=== PATIENT | female | born 1945 | race Caucasian/White ===

== ENCOUNTER → 2020-06-03 10:18 | Outpatient (REF) | payer MEDICARE, SELFPAY ==
--- NOTE | 2020-06-03 10:30 | CA_ITS ---
Transthoracic Echocardiogram Patient (Last, First, Middle): Sultana Hartmann M Gender: Female Date of : 1945 Age: 74 Procedure Date: 06/03/2020 Procedure Type: Transthoracic Echocardiogram Location: OP Height: 160.02 cm Weight: 115.67 kg BSA: 2.14 m2 Heart Rate: bpm BP: 140 / 88 mmHg Programmer Operator Numerical Control: Referring MD: Yang Barth MD Symptoms: [id number] dilated ascending aorta Study Quality: Good ECG Rhythm: Sinus Conclusions: - The left ventricular systolic function is normal. The visually estimated ejection fraction is between 60-65%. - There is mild tricuspid valve regurgitation. - There is mild dilatation of the ascending aorta measuring 4.00 cm. Findings Left Ventricle Normal left ventricular cavity size. The left ventricular systolic function is normal. The visually estimated ejection fraction is between 60-65%. There is no evidence of regional wall motion abnormalities. E/E prime ratio is between 8 and 15 consistent with indeterminate filling pressures. Evidence suggests grade I (mild) diastolic dysfunction. There is mild septal asymmetric hypertrophy. Right Ventricle Normal right ventricular cavity size and systolic function. Atria The left atrium is normal in size. The right atrium is mildly dilated. Aortic Valve There is a normal trileaflet aortic valve. There is no aortic valve stenosis. There is no aortic valve regurgitation. Mitral Valve The mitral valve appears normal. There is trace mitral valve regurgitation. There is no mitral valve stenosis. Pulmonic Valve The pulmonic valve was not well visualized. There is mild pulmonic valve regurgitation. Tricuspid Valve Normal tricuspid valve structure. There is mild tricuspid valve regurgitation. The pulmonary artery systolic pressure is normal. Great Vessels The aortic annulus, sinuses of valsalva, and asc aorta are normal in size. There is mild dilatation of the ascending aorta measuring 4.00 cm. Venous The inferior vena cava is normal in size and collapses greater than 50% with inspiration. Pericardium/Pleural There is no evidence of pericardial effusion. Prior Study Comparison No significant change compared to prior study dated: 06/20/2019. Measurements 2D Linear Measurements RVIDd: 3.66 RVIDd Index: 1.71 IVSd: 0.94 0.6-0.9/0.6-1.0 cm LVIDd: 4.29 3.9-5.3/4.2-5.9 cm LVIDd Index: 2.00 2.4-3.2/2.2-3.1 cm/m2 LVIDs: 2.91 2.0-3.6 cm LVPWd: 1.28 0.7-1.1 cm Ao Root: 3.00 2.1-3.5 cm LA Diam: 5.80 2.7-3.8/3.0-4.0 cm LAIDs Index: 2.71 1.5-2.3 cm/m2 LV Mass: 205.35 67-162/88-224 g LV Mass Index: 95.96 43-95/49-115 g/m2 LVOT Diam: 2.10 3.0+(-)1.3 cm 2D Systolic Function EF 4C: 58.50 >55% EF 2C: 78.60 >55% EF BiP: 70.30 >55% Mitral Valve MV Pk E: 0.82 MV PK A: 1.22 MV Decel Time: 301.00 E/A: 0.70 E'Lateral: 7.06 E'Medial: 7.45 E/E' Med: 11.00 E/E' Lat: 11.60 Aortic Valve AoV Pk Cornel: 1.82 AoV Mn Cornel: 1.28 AoV VTI: 0.41 AoV Pk Grad: 13.00 Aov Mn Grad: 8.00 MIGUEL Cont.VTI: 2.47 LVOT LVOT Pk Cornel: 1.16 LVOT Mn Cornel: 0.87 LVOT VTI: 0.29 LVOT Pk Grad: 5.00 LVOT Mn Grad: 3.00 LVOT Diam: 2.10 LVOT Area: 3.46 Diastolic Function MV Pk E: 0.82 MV Pk A: 1.22 E/A: 0.70 E'Medial: 7.45 E/E' Med: 11.00 E' Laterial: 7.06 E/E' Lat: 11.60 Tricuspid Valve TR Pk Cornel: 2.79 TR Pk Grad: 31.00 RA Press: 3.00 RVSP: 34.00 Great Vessels Aorta Ao Root-2D: 3.00 2.0-3.7 cm Ao Asc: 4.00 2.1-3.4 cm Ao Arch: 3.40 Updated in Other Vendor System with Status of Final Foster Damon MD electronically signed on 06/03/2020 4:41:02 PM with status of Final
== END ==
LOC: HO.CARD 10:18
PROVIDERS: Visit Provider Internal Medicine Cardiovascular Disease
DX: I77.810 Thoracic aortic ectasia (principal)
CPT/HCPCS: 93306

== ENCOUNTER 2020-08-14 09:08 | Outpatient (REF) | payer MEDICARE, SELFPAY ==
--- NOTE | 2020-08-14 09:15 | MM_ITS ---
EXAMINATION: BONE DENSITOMETRY CLINICAL INDICATION: Asymptomatic menopausal state. COMPARISON: Baseline BD dated 03/21/2009. TECHNIQUE: Using a [employer] DXA System (software version: 13.1) manufactured by [employer], dual-energy x-ray absorptiometry was performed of the lumbar spine and left hip. The images are of good technical quality. Summary results are attached. FINDINGS: AP SPINE L1-L2 (excluding L3 and L4): The data of L1-L4 has been changed to exclude the L3 and L4 vertebral bodies, because degenerative changes at these levels may cause overestimation of lumbar spine density. Current: BMD 1.111 g/cm2, Z-score 0.2, T-score -0.4, normal, 4.2% increase from baseline (<5% change is not significant). Baseline: BMD 1.066 g/cm2. LEFT FEMUR, NECK: Current: BMD 0.647 g/cm2, Z-score -1.6, T-score -2.8, osteoporosis. Baseline: BMD 0.826 g/cm2. LEFT FEMUR, TOTAL: Current: BMD 0.839 g/cm2, Z-score -0.3, T-score -1.3, osteopenia, 16.8% decrease from baseline (<5% change is not significant). Baseline: BMD 1.008 g/cm2. IDENTIFIED RISK FACTORS: Height loss, menopause. HISTORY OF FRACTURE: None listed. MEDICATIONS: Calcium supplements or multivitamin, vitamin D. MM/XR DEXA axial skeleton IMPRESSION: 1. DIAGNOSIS: Osteoporosis based on the lowest T-score value of -2.8 in the femoral neck applying World Health Organization criteria. 2. 10-YEAR FRACTURE RISK PREDICTION, FRAX: Major osteoporotic fracture (clinical spine, forearm, hip or shoulder) 17.7%. Hip fracture 6.1%. 3. Treatment Recommendations: NOF guidelines recommend consideration for treatment in postmenopausal women and men age 50 and older presenting with the following: -A hip or vertebral (clinical or morphometric) fracture. -T-score less than or equal to -2.5 at the femoral neck or spine after appropriate evaluation to exclude secondary causes. -Low bone mass at the hip or spine and a 10-year fracture probability by FRAX of greater than or equal to 3% for hip fracture or greater than or equal to 20% for major osteoporotic fracture based on the [place] adapted WHO algorithm. 4. Other Recommendations: All treatment decisions require clinical judgment and consideration of individual patient factors, including patient preferences, comorbidities, previous drug use, risk factors not captured in the FRAX model (e.g. frailty, falls, vitamin D deficiency, increased bone turnover, interval significant decline in bone density) and possible under or overestimation of fracture risk by FRAX. Additional medical evaluation for secondary cause of low bone mineral density may be appropriate. FUTURE SCAN RECOMMENDATION: People with diagnosed cases of osteoporosis or at high risk for fracture should have regular bone mineral density tests. For patients eligible for Medicare, routine testing is allowed once every 2 years. The testing frequency can be increased to one year for patients who have rapidly progressing disease, those who are receiving or discontinuing medical therapy to restore bone mass, or have additional risk factors.
--- NOTE | 2020-08-14 09:28 | MM_ITS ---
EXAMINATION: MM SCREENING DIGITAL BREAST TOMOSYNTHESIS, RIGHT CLINICAL INFORMATION: Remote history left mastectomy 1983. Due for yearly exam. COMPARISON: Mammography: 11/22/2017, 12/05/2014, 03/26/2014 TECHNIQUE: Digital breast tomosynthesis is performed in both the craniocaudal and mediolateral oblique views along with computer-aided detection (CAD). Synthesized 2D images are generated from the tomosynthesis. FINDINGS: There are scattered areas of fibroglandular density (ACR BI-RADS breast composition Category b). Breast tissue composition borders on predominantly fatty. Background stromal densities are stable. There are no significant masses, abnormal calcifications, or other abnormalities. There are dermal lesions again seen overlying the posterior inferior medial right breast. MM/MM tomosynthesis screening BI IMPRESSION: No mammographic evidence of malignancy. ASSESSMENT: BI-RADS 2: Benign RECOMMENDATION: Routine annual mammography screening. This patient's information was entered into a reminder system with a target due date for their next mammogram.
== END 2020-08-14 09:09 | disposition home or self-care (01) ==
LOC: HO.MAMMO 09:08
PROVIDERS: Visit Provider Internal Medicine
DX: E28.39 Other primary ovarian failure (principal); Z78.0 Asymptomatic menopausal state; Z12.31 Encounter for screening mammogram for malignant neoplasm of breast
CPT/HCPCS: 77063; 77067; 77080

== ENCOUNTER → 2020-10-22 12:42 | Outpatient (BNVA) | payer MEDICARE, SELFPAY | PROVIDERS: PCP Internal Medicine; Visit Provider Internal Medicine Cardiovascular Disease | DX: I77.810 Thoracic aortic ectasia (principal); I10 Essential (primary) hypertension; R06.00 Dyspnea, unspecified | CPT/HCPCS: 93005; 99212 ==

== ENCOUNTER 2021-05-06 13:33 | Outpatient (REF) | payer MEDICARE, SELFPAY ==
--- NOTE | 2021-05-08 08:22 | MHC.AU.AHA ---
Adult Audiological Evaluation Date of Visit: 05/06/21 Reason for Appointment: History of hearing loss. Patient arrives to determine if there has been a change in hearing. Previous Hearing Test Results: On 04/04/2020 at this clinic: Mild to moderately-severe sensorineural hearing loss bilaterally Ear History: Ear Deformity: None Reported Recent Ear Drainage: None Reported Recent Ear Pain: None Reported Family History of Hearing Loss?: Yes Recent Ear Infections: None Reported Ear Infections in Childhood: None Reported History of Ear Wax Buildup: None Reported Previous Ear Surgery: None Reported Bothersome Tinnitus/Ringing/Noises in Ears: Both Ears Ear used on the phone: Left Ear Blocked/Full Sensation in Ear(s): None Reported History of occupational noise exposure?: No History: No Medical History: Medical History: Breast Cancer in 1984, Heart Problems, Hypertension, Measles/Mumps in childhood Hearing Instrument History- Right Ear: Chief Business Development Officer: Shortlist Model: Campus Quad M70-R Serial Number: [id number] Battery Size: Rechargeable Repair Warranty: 07/07/2023 Loss and Damage Warranty: 07/07/2023 Dispensed By: [facility] Date of Fittin05/01/2020 Hearing Instrument History- Left Ear: Chief Business Development Officer: Shortlist Model: Campus Quad M70-R Serial Number: [id number] Battery Size: Rechargeable Warranty: 07/07/2023 Loss and Damage Warranty: 07/07/2023 Dispensed By: [facility] Date of Fittin05/01/2020 Otoscopy: Right Ear: Unremarkable Left Ear: Unremarkable Tympanometry: Tympanometry performed due to: To assess integrity of the middle ear system Right Ear: Normal Middle Ear System (Type A) Left Ear: Normal Middle Ear System (Type A) Hearing Evaluation: Transducer(s) Used: Insert Earphones Method: Conventional Audiometry Stimuli Used: Pure Tones Right Ear: Description of Hearing: Mild/moderate to moderately-severe sensorineural hearing loss Left Ear: Description of Hearing: Mild/moderate to moderately-severe sensorineural hearing loss Speech Recognition Threshold (SRT): Method Used: Recorded Lists Stimuli Used: Spondee Words Right Ear: 40 dBHL Left Ear: 45 dBHL Word Discrimination: Method: Recorded Lists Word Lists Used: W-22 Right Ear: 72% at 75 dBHL Left Ear: 84% at 75 dBHL Most Comfortable Level (MCL): Right Ear: 75 dBHL Left Ear: 75 dBHL Aided Testing: Aided word discrimination in soundfield: 96% at 50 dBHL Comparison: Compared to most recent evaluation: Slight decrease of 5 dBHL throughout most frequencies Recommendations: Audiological re-evaluation in one year. Patient reports that she primarily uses the hearing aids for social situations and for the television. She inquired if she should be wearing them more often. Discussed that it is best to wear them during all waking hours to keep the auditory pathways of the brain stimulated and to get adjusted to amplified sound. Patient feels the hearing aid programming sounds comfortable. Aided testing suggests the hearing aids are providing beneficial amplification. No programming changes were made today. Hearing aid maintenance performed. Diagnosis: Primary Diagnosis: H90.3 Bilateral Sensorineural Hearing Loss Signature: Provider: Trina Jefferson, TATIANA-A
== END 2021-05-06 13:34 | disposition home or self-care (01) ==
LOC: HO.SH 13:33
PROVIDERS: Visit Provider Internal Medicine
DX: H91.93 Unspecified hearing loss, bilateral (principal)
CPT/HCPCS: 92557; 92567

== ENCOUNTER → 2021-06-24 12:36 | Outpatient (BNVA) | payer MEDICARE, SELFPAY | PROVIDERS: PCP Internal Medicine; Referring Provider Internal Medicine; Visit Provider Internal Medicine Cardiovascular Disease | DX: I77.810 Thoracic aortic ectasia (principal); I10 Essential (primary) hypertension; R06.00 Dyspnea, unspecified | CPT/HCPCS: 99212 ==

== ENCOUNTER 2021-07-13 11:00 | Outpatient (RCR) | payer MEDICARE, SELFPAY | END 2021-08-18 09:33 | disposition home or self-care (01) | LOC: HO.PT 11:00 | PROVIDERS: PCP Internal Medicine; Visit Provider Orthopaedic Surgery | DX: M17.0 Bilateral primary osteoarthritis of knee (principal); R26.81 Unsteadiness on feet; R26.89 Other abnormalities of gait and mobility; M62.81 Muscle weakness (generalized) | CPT/HCPCS: 97110; 97112; 97150; 97162; 97530 ==

== ENCOUNTER → 2021-07-31 09:54 | Outpatient (REF) | payer MEDICARE, SELFPAY ==
--- NOTE | ~2021-07-31 | NM_ITS ---
Myocardial perfusion study Indication: Dyspnea, evaluate for myocardial ischemia Technique: The patient was brought in for a Lexiscan perfusion study on 07/31/2021. Patient performed low-level exercise and was injected 0.4 mg of Lexiscan intravenously. Within a minute of injection, 35 mCi of sestamibi was given intravenously. Images were obtained using the SPECT gamma camera interlaced with the gating device. Images were obtained in supine position. Resting perfusion study was performed on 08/03/2021. Patient was administered 35 mCi of sestamibi intravenously at rest. Images were then obtained in supine position. Images obtained with and without CT attenuation. Total DLP 138 mGy-cm. Images were processed with the software and compared side to side in short axis, horizontal long axis and vertical long axis views. Findings: The stress perfusion study showed non attenuated images show mildly to moderately reduced uptake in the inferior and inferolateral wall of the LV myocardium. Remainder of the LV myocardium is normally perfused. Attenuation corrected images show minimally reduced uptake in the apex of the LV myocardium.. The gated study shows normal LV systolic function with calculated LVEF of 73%. LV cavity is normal in size. The gated study shows normal systolic wall thickening and contraction of segments. Resting study shows no significant change in perfusion pattern compared to stress perfusion study. Gating at rest reveals normal systolic wall motion with ejection fraction at 61%. The findings are consistent with no reversible defect suggestive of. Likely normal myocardial perfusion. NM/NM cardiolite stress test Impression: 1. Myocardial perfusion imaging study shows likely normal myocardial perfusion 2. Gated LVEF is 61% 3. Transient ischemic dilatation not present EKG is nondiagnostic for ischemia
--- NOTE | 2021-07-31 09:59 | CA_ITS ---
Acquisition Time: 2021-07-31 10:04:27 Total Exercise Time: 00:02:00 Test Indications: SOB Medications: Protocol: LEXISCAN Max HR: 085 BPM 59% of Pred: 143 BPM Max BP: 138/078 mmHG Max Work Load: 1.0 METS Pharmacological stress test with Lexiscan injection, while sitting and kicking her legs, with mild sob, no chest discomfort, without arrythmia, with normotensive response to injection, without EKG changes meeting criteria for ischemia. At 3 min recovery she had ongoing sob and was treated with Aminophylline 75mg IVP to reverse Lexiscan and 6 oz caffinated cola with gradual with resolution of sob. Nuclear images pending. Test reviewed with Dr Barth. Referred By: Yang Barth Overread By: ALANA NORTON
== END ==
LOC: HO.CARD 09:54
PROVIDERS: Absent Provider Orthopaedic Surgery; PCP Internal Medicine; Visit Provider Internal Medicine Cardiovascular Disease
DX: R06.00 Dyspnea, unspecified (principal)
CPT/HCPCS: 78452; 93017; A9500; J0280; J2785

== ENCOUNTER → 2021-08-10 09:17 | Outpatient (BNVA) | payer MEDICARE, SELFPAY | PROVIDERS: PCP Internal Medicine; Referring Provider Internal Medicine; Visit Provider Internal Medicine Cardiovascular Disease | DX: Z01.810 Encounter for preprocedural cardiovascular examination (principal); I10 Essential (primary) hypertension; R06.00 Dyspnea, unspecified | CPT/HCPCS: 93005; 99212 ==

== ENCOUNTER 2022-02-04 11:00 | Outpatient (RCR) | payer MEDICARE, SELFPAY | END 2022-02-08 10:27 | disposition home or self-care (01) | LOC: HO.PT 11:00 | PROVIDERS: PCP Internal Medicine; Visit Provider Physician Assistant | DX: Z96.652 Presence of left artificial knee joint (principal) | CPT/HCPCS: 97110; 97150; 97161; 97530 ==

== ENCOUNTER → 2022-04-19 15:15 | Outpatient (BNVA) | payer MEDICARE, SELFPAY | PROVIDERS: PCP Internal Medicine; Referring Provider Internal Medicine; Visit Provider Internal Medicine Cardiovascular Disease | DX: Z01.810 Encounter for preprocedural cardiovascular examination (principal); R06.00 Dyspnea, unspecified; I10 Essential (primary) hypertension; I77.819 Aortic ectasia, unspecified site; I45.10 Unspecified right bundle-branch block | CPT/HCPCS: 93005; 99212 ==

== ENCOUNTER → 2022-05-12 15:14 | Outpatient (BNVA) | payer MEDICARE, SELFPAY | PROVIDERS: PCP Internal Medicine; Referring Provider Internal Medicine; Visit Provider Surgery | DX: R22.9 Localized swelling, mass and lump, unspecified (principal) | CPT/HCPCS: 99202 ==

== ENCOUNTER 2022-06-02 13:54 | Outpatient (REF) | payer MEDICARE, SELFPAY | END 2022-06-02 13:55 | disposition home or self-care (01) | LOC: HO.LNP 13:54 | PROVIDERS: PCP Internal Medicine; Visit Provider Surgery | DX: C44.529 Squamous cell carcinoma of skin of other part of trunk (principal) | CPT/HCPCS: 11402; 11603; 88305 ==

== ENCOUNTER → 2022-06-16 09:51 | Outpatient (BNVA) | payer MEDICARE, SELFPAY | PROVIDERS: PCP Internal Medicine; Visit Provider Surgery | DX: Z48.3 Aftercare following surgery for neoplasm (principal); C44.529 Squamous cell carcinoma of skin of other part of trunk | CPT/HCPCS: 99212 ==

== ENCOUNTER 2023-10-19 14:25 | Outpatient (REF) | payer MEDICARE, SELFPAY | END 2023-10-19 14:26 | disposition home or self-care (01) | LOC: HO.HAP 14:25 | PROVIDERS: Visit Provider Internal Medicine | DX: Z13.89 Encounter for screening for other disorder (principal) ==

== ENCOUNTER 2023-12-08 11:05 | Outpatient (REF) | payer MEDICARE, SELFPAY ==
--- NOTE | ~2023-12-08 | MM_ITS ---
EXAMINATION: BONE DENSITOMETRY CLINICAL INDICATION: Osteoporosis. COMPARISON: Previous BD dated 08/14/2020 and baseline BD dated 03/21/2009. TECHNIQUE: Using a [employer] DXA System (software version: 13.1) manufactured by [employer]], dual-energy x-ray absorptiometry was performed of the lumbar spine and left hip. The images are of good technical quality. Summary results are attached. FINDINGS: LEFT FEMUR, NECK: Current: BMD 0.634 g/cm2, Z-score -1.5, T-score -2.9, osteoporosis. Prior: BMD 0.647 g/cm2. Baseline: BMD 0.826 g/cm2. LEFT FEMUR, TOTAL: Current: BMD 0.766 g/cm2, Z-score -0.7, T-score -1.9, osteopenia, 8.7% decrease from previous, 24.0% decrease from baseline (<5% change is not significant). Prior: BMD 0.839 g/cm2. Baseline: BMD 1.008 g/cm2. AP SPINE L1-L4: Current: BMD 1.243 g/cm2, Z-score 1.2, T-score 0.5, normal, 2.0% increase from previous, 7.7% increase from baseline (<5% change is not significant). Prior: BMD 1.219 g/cm2. Baseline: BMD 1.154 g/cm2. IDENTIFIED RISK FACTORS: Height loss, history of fracture (adult), menopause, recurrent falls. HISTORY OF FRACTURE: Elbow, pelvis. MEDICATIONS: Calcium, vitamin D. MM/XR DEXA axial skeleton IMPRESSION: 1. DIAGNOSIS: Severe osteoporosis based on the lowest T-score value of -2.9 in the femoral neck and history of fracture applying World Health Organization criteria. 2. 10-YEAR FRACTURE RISK PREDICTION, FRAX: According to the guidelines, FRAX calculation should only be performed on patients in the osteopenia bone density category. Therefore, FRAX was not performed on this patient.? 3. Treatment Recommendations: NOF guidelines recommend consideration for treatment in postmenopausal women and men age 50 and older presenting with the following: -A hip or vertebral (clinical or morphometric) fracture. -T-score less than or equal to -2.5 at the femoral neck or spine after appropriate evaluation to exclude secondary causes. -Low bone mass at the hip or spine and a 10-year fracture probability by FRAX of greater than or equal to 3% for hip fracture or greater than or equal to 20% for major osteoporotic fracture based on the [place] adapted WHO algorithm. 4. Other Recommendations: All treatment decisions require clinical judgment and consideration of individual patient factors, including patient preferences, comorbidities, previous drug use, risk factors not captured in the FRAX model (e.g. frailty, falls, vitamin D deficiency, increased bone turnover, interval significant decline in bone density) and possible under or overestimation of fracture risk by FRAX. Additional medical evaluation for secondary cause of low bone mineral density may be appropriate. FUTURE SCAN RECOMMENDATION: People with diagnosed cases of osteoporosis or at high risk for fracture should have regular bone mineral density tests. For patients eligible for Medicare, routine testing is allowed once every 2 years. The testing frequency can be increased to one year for patients who have rapidly progressing disease, those who are receiving or discontinuing medical therapy to restore bone mass, or have additional risk factors.
--- NOTE | ~2023-12-08 | MM_ITS ---
EXAMINATION: MM SCREENING DIGITAL BREAST TOMOSYNTHESIS, BILATERAL CLINICAL INFORMATION: Screening. Asymptomatic. The patient is status post left mastectomy. COMPARISON: Mammography: This study is compared with prior exams dating back to 2018. TECHNIQUE: Digital breast tomosynthesis is performed in both the craniocaudal and mediolateral oblique views along with computer-aided detection (CAD). Synthesized 2D images are generated from the tomosynthesis. FINDINGS: There are scattered areas of fibroglandular density (ACR BI-RADS breast composition Category b). There are no significant masses, abnormal calcifications, or other abnormalities. MM/MM tomosynthesis screening RT IMPRESSION: No mammographic evidence of malignancy. ASSESSMENT: BI-RADS BI-RADS 1 - Negative RECOMMENDATION: Routine annual mammography screening. 1 year F/U This examination should not preclude the clinical evaluation of a suspicious palpable abnormality. This patient's information was entered into a reminder system with a target due date for their next mammogram.
== END 2023-12-08 11:06 | disposition home or self-care (01) ==
LOC: HO.MAMMO 11:05
PROVIDERS: PCP Internal Medicine; Visit Provider Internal Medicine
DX: Z12.31 Encounter for screening mammogram for malignant neoplasm of breast (principal); Z13.820 Encounter for screening for osteoporosis; Z78.0 Asymptomatic menopausal state; M81.0 Age-related osteoporosis without current pathological fracture
CPT/HCPCS: 77063; 77067; 77080

== ENCOUNTER → 2023-12-08 11:30 | Outpatient (BNV) | payer MEDICARE, SELFPAY | PROVIDERS: PCP Internal Medicine; Visit Provider Radiology Diagnostic Radiology | DX: Z12.31 Encounter for screening mammogram for malignant neoplasm of breast (principal) | CPT/HCPCS: 77063; 77067 ==

== ENCOUNTER → 2025-03-07 12:46 | Outpatient (REF) | payer MEDICARE, SELFPAY ==
--- NOTE | 2025-03-07 12:49 | CA_ITS ---
Transthoracic Echocardiogram Patient (Last, First, Middle): Sultana Hartmann M Gender: Female Date of : 1945 Age: 79 Procedure Date: 03/07/2025 Procedure Type: Transthoracic Echocardiogram Location: OP Height: 160.02 cm Weight: 106.14 kg BSA: 2.07 m2 Heart Rate: bpm BP: 120 / 70 mmHg X Ray Service Technician: CP/HARI Referring MD: Collin Kingsley MD Symptoms: RENTERIA R06.09 HTN I10 Study Quality: Adequate ECG Rhythm: Sinus Conclusions: - The left ventricular systolic function is normal. The calculated ejection fraction is 60% by biplane method. - Evidence suggests grade II (moderate) diastolic dysfunction. - There is mild aortic valve regurgitation. - There is mild dilatation of the ascending aorta measuring 4.50 cm. Findings Left Ventricle Normal left ventricular cavity size. There is normal left ventricular wall thickness. The left ventricular systolic function is normal. The calculated ejection fraction is 60% by biplane method. There is no evidence of regional wall motion abnormalities. Evidence suggests grade II (moderate) diastolic dysfunction. Right Ventricle Mildly increased right ventricular cavity size. There is normal right ventricular systolic function. Atria The left atrium is normal in size. The right atrium is moderately dilated. Aortic Valve There is a normal trileaflet aortic valve. There is no aortic valve stenosis. There is mild aortic valve regurgitation. Mitral Valve The mitral valve appears normal. There is trace mitral valve regurgitation. There is no mitral valve stenosis. Pulmonic Valve The pulmonic valve is likely normal. Tricuspid Valve There is mild tricuspid valve regurgitation. Borderline pulmonary artery systolic pressure. Great Vessels There is mild dilatation of the ascending aorta measuring 4.50 cm. Venous The inferior vena cava is mildly dilated and collapses greater than 50% with inspiration. Pericardium/Pleural Prominent epicardial adipose tissue noted. There is no evidence of pericardial effusion. Prior Study Comparison Changes noted compared to prior study dated: 06/03/2020. Increase in ascending aortic size. Measurements 2D Linear Measurements IVSd: 0.86 0.6-0.9/0.6-1.0 cm LVIDd: 4.92 3.9-5.3/4.2-5.9 cm LVIDd Index: 2.38 2.4-3.2/2.2-3.1 cm/m2 LVIDs: 3.30 2.0-3.6 cm LVPWd: 0.75 0.7-1.1 cm LA Diam: 5.00 2.7-3.8/3.0-4.0 cm LAIDs Index: 2.42 1.5-2.3 cm/m2 LV Mass: 165.46 67-162/88-224 g LV Mass Index: 79.93 43-95/49-115 g/m2 LVOT Diam: 2.10 3.0+(-)1.3 cm 2D Systolic Function EF 4C: 57.40 >55% EF 2C: 64.40 >55% EF BiP: 60.00 >55% Mitral Valve MV Pk E: 1.01 MV PK A: 1.39 MV Decel Time: 211.00 E/A: 0.70 E'Lateral: 6.42 E'Medial: 4.35 E/E' Med: 23.20 E/E' Lat: 15.70 PHT: 62.00 MVA PHT: 3.55 Decel Sibley: 4.77 Aortic Valve AoV Pk Cornel: 1.64 AoV Mn Cornel: 1.26 AoV VTI: 0.47 AoV Pk Grad: 11.00 Aov Mn Grad: 7.00 MIGUEL Cont.VTI: 2.01 AI Pk Cornel: 5.07 AI Sibley: 1.95 LVOT LVOT Pk Cornel: 0.94 LVOT Mn Cornel: 0.64 LVOT VTI: 0.27 LVOT Pk Grad: 4.00 LVOT Mn Grad: 2.00 LVOT Diam: 2.10 LVOT Area: 3.46 Diastolic Function MV Pk E: 1.01 MV Pk A: 1.39 E/A: 0.70 E'Medial: 4.35 E/E' Med: 23.20 E' Laterial: 6.42 E/E' Lat: 15.70 Right Ventricle TAPSE (mm): 27.80 TVS' Cornel: 14.50 Tricuspid Valve TR Pk Cornel: 2.81 TR Pk Grad: 32.00 RA Press: 8.00 RVSP: 40.00 Great Vessels Aorta Sinus of Valsalva: 3.10 2.0-3.5 cm Ao Asc: 4.50 2.1-3.4 cm Updated in Other Vendor System with Status of Final Foster Damon MD electronically signed on 03/08/2025 2:51:23 PM with status of Final
--- OUTSIDE RECORDS SUMMARY | 2025-03-07 13:12 | XMS_ITS ---
Author Organization [facility] on Care Team Providers Care Salesperson Recreational Vehicles Name Role Phone Albert-SilverNovember Unavailable Unavailabl Meseret Gotti Unavailable Unavailable Jean Beltran Unavailable Unavailable Pravin Hi Unavailable Unavailable Allergies and adverse reactions Code CodeSystem Substance Reaction Severity StartDate Concern Status 2670 RXNORM Codeine Nausea (code- 4 [id number], SNOMED CT) Mild 07/18/2023 active Care Team Name Role Address Phone Organization Dates Pravin Hi PCP [address] [place] [address] [address], [place], [address], [place] (Office): : [facility] 07/19/2023 - 08/10/2023November Claus [address] [place] [address], [id number], [place] (Office): : [facility] 07/19/2023 - 08/10/2023 Meseret Maya [address] [place] [address], [address], [place] (Office): [facility] 07/19/2023 - 08/10/2023 Jean Beltran [address] [place] [address], [place], [address], [place] (Office): [facility] 07/19/2023 - 08/10/2023 Immunizations Immunization Status Vaccine Details Vaccine Code CodeSystem Date Notes Influenza completed Influenza, split virus, trivalent, injectable, contains preservative 141 CVX created date: 07/19/2023 administer ed date: 07/15/2023 Verified in MIIS. Pneumococcal Polysaccharide Vaccine (PPSV23) completed pneumococcal polysaccharide vaccine, 23 valent 33 CVX created date: 07/19/2023 administer ed date: 09/23/2016 Verified in MIIS. SARS-COV-2 (COVID-19) completed SARS-COV-2 (COVID-19) vaccine, mRNA, spike protein, LNP, preservative free, 30 mcg/0.3mL dose Mfg: [employer] Step 2 of Multi-step with next step required 208 CVX created date: 07/19/2023 administer ed date: 10/21/2020 Verified in MIIS. SARS-COV-2 (COVID-19) completed SARS-COV-2 (COVID-19) vaccine, mRNA, spike protein, LNP, preservative free, 30 mcg/0.3mL dose Mfg: [employer] Step 1 of Multi-step with next step required 208 CVX created date: 07/19/2023 administer ed date: 09/30/2020 Verified in MIIS. Prevnar 20 Pneumococcal conjugate (PCV20) cancelled Pneumococcal conjugate vaccine 20-valent (PCV20), polysaccharide [id number] conjugate, adjuvant, preservative free 216 CVX created date: 07/29/2023 consent date: 07/29/2023 Educated by Ynes Rosa on 07/22/2023 SARS-COV-2 (COVID-19 BOOSTER) cancelled SARS-COV-2 (COVID-19) vaccine, mRNA, spike protein, LNP, preservative free, jaylyn-sucrose, 30 mcg/0.3 mL dose 309 CVX created date: 07/29/2023 consent date: 07/29/2023 Educated by Ynes Rosa on 07/22/2023 SARS-COV-2 (COVID-19 BOOSTER) completed SARS-COV-2 (COVID-19) vaccine, mRNA, spike protein, LNP, preservative free, 30 mcg/0.3mL dose Mfg: [employer] #1 208 CVX created date: 07/19/2023 administer ed date: 08/04/2021 Verified in MIIS. RSV, bivalent, protein subunit RSVpreF, diluent rec cancelled Respiratory syncytial virus (RSV), vaccine, bivalent, protein subunit RSV prefusion F, diluent reconstituted, 0.5 mL, preservative free 305 CVX created date: 07/29/2023 consent date: 07/29/2023 Educated by Ynes Rosa on 07/22/2023 Mental Status Section Date Assessment Total Score Description 08/10/2023 BIMS 15 cognitively int act CAM 0 No delirium ind icated PHQ-9 00 07/24/2023 BIMS 15 cognitively int act CAM 0 No delirium ind icated PHQ-9 01 minimal depress ion Problems Problem # Description Date of onset Resolved Date Code CodeSystem Concern Status 1 VITAMIN DEFICIENCY, UNSPECIFIED 07/26/[address] active 2 ANXIETY DISORDER, UNSPECIFIED 07/18/[address] active 3 BODY MASS INDEX [BMI] 39.0-39.9, ADULT 07/18/[address] active 4 CONTUSION OF OTHER URINARY AND PELVIC ORGAN, SUBSEQUENT ENCOUNTER 07/18/[address] active 5 ESSENTIAL (PRIMARY) HYPERTENSION 07/18/[address] active 6 FRACTURE OF SUPERIOR RIM OF RIGHT PUBIS, SUBSEQUENT ENCOUNTER FOR FRACTURE WITH ROUTINE HEALING 07/18/[address] active 7 GOUT, UNSPECIFIED 07/18/[address] active 8 MAJOR DEPRESSIVE DISORDER, RECURRENT, UNSPECIFIED 07/18/[address] active 9 NOCTURIA 07/18/[address] active 10 NONDISPLACED FRACTURE OF HEAD OF RIGHT RADIUS, SUBSEQUENT ENCOUNTER FOR CLOSED FRACTURE WITH ROUTINE HEALING 07/18/[address] active 11 NONDISPLACED ZONE I FRACTURE OF SACRUM, SUBSEQUENT ENCOUNTER FOR FRACTURE WITH ROUTINE HEALING 07/18/[address] active 12 UNILATERAL PRIMARY OSTEOARTHRITIS, LEFT KNEE 02/25/[address] active 13 UNILATERAL PRIMARY OSTEOARTHRITIS, RIGHT KNEE 02/25/[address] active 14 UNSPECIFIED OSTEOARTHRITIS, UNSPECIFIED SITE 11/17/[address] active 15 PERSONAL HISTORY OF OTHER DISEASES OF THE MUSCULOSKELETAL SYSTEM AND CONNECTIVE TISSUE 12/30/[address] active 16 IRRITABLE BOWEL SYNDROME, UNSPECIFIED 09/30/[address] active 17 PURE HYPERCHOLESTEROLEMIA , UNSPECIFIED 09/30/[address] active 18 VITAMIN D DEFICIENCY, UNSPECIFIED 09/30/[address] active 19 PERSONAL HISTORY OF MALIGNANT NEOPLASM OF BREAST 08/22/[address] active Reason for Referral No Reasons for Referral Entered Social History Social History Observation Description Start Date End Date Code Code System Current Smoking Status Tobacco smoking consumption unknown 408212222 SNOMED CT Sex Assigned At Female 1945 92083-2 [facility] Gender Identity Vital Signs Code Code System Vitals Name Values and Units Timing Information 9279-1 [facility] Respiratory Rate Value=18.0 Units=/m in 08/10/2023 8462-4 [facility] Blood Pressure-Diastolic Value=76 Un its=mmHg 08/10/2023 8480-6 [facility] Blood Pressure-Systolic Ptvde=134 Un its=mmHg 08/10/2023 8310-5 [facility] Body Temperature Value=98.4 Units= F 08/10/2023 8867-4 [facility] Heart rate Value=62.0 Units=/min 69132-5 [facility] O2 % BldC Oximetry Value=95.0 Units= % 08/10/2023 78768-8 [facility] Pain Level Value=0.0 08/09/2023 05523-5 [facility] Weight Xytwe=381.0 Units=Lbs 8302-2 [facility] Height Value=63.0 Units=Inches 07/20/2023
--- OUTSIDE RECORDS SUMMARY | 2025-03-07 13:12 | XMS_ITS | Patient Health Record ---
Author Organization [facility] Address [address] [place] [address] Care Team Providers Care Tire Buffer Name Role Phone Collin Kingsley MD Primary Care Provider Dixon Reyes Unavailable [phone] Allergies Allergen (clinical drug ingredient) Drug/Non Drug Allergy documented on EMR Reaction Allergy Type Onset Date Status codeine Codeine Unknown Drug Allergy Active Reason For Referral No Information Medications Medication SIG (Take, Route, Fr equency, Duration) Notes Start Date End Date Status Vitamin D3 Active Meloxicam Active Colcrys 0.6 MG TAKE ONE TABLET BY M OUTH ON CE A DAY FOR 10 DAYS FOR GO UT ATTACK; Duration: 10 Active Valsartan Active Dicyclomine HCl Acti ve hydroCHLOROthiazide Active Problems Problem Type SNOMED Code ICD Code Onset Dates Problem Status W/U Status Risk Notes Problem Metatarsalgia (44274624) Metatarsalgia (726.70) Active confirmed Problem Pain in Limb (729.5) Active confirmed Problem Gout (69955062) GOUT (274.00) Active confirmed Plan Of Treatment No Information Insurance Providers Payer Name Payer Address Payer Phone Subscriber Number Group Number Insured Name Patient Relationship to Insured Coverage Start Date Coverage End Date [facility] 63 Medicare Preferred [address] [place] [address] [id number] Sultana Hartmann Self - patient is the insured Medical (General) History Medical History History ICD Code Arthritis Back,Hip,and Knee pain Hypertension
== END ==
LOC: HO.CARD 12:46
PROVIDERS: Visit Provider Internal Medicine
DX: R06.09 Other forms of dyspnea (principal); I10 Essential (primary) hypertension
CPT/HCPCS: 93306

== ENCOUNTER → 2025-03-07 12:49 | Outpatient (BNV) | payer MEDICARE, SELFPAY | PROVIDERS: Visit Provider Internal Medicine | DX: I35.1 Nonrheumatic aortic (valve) insufficiency (principal); I51.89 Other ill-defined heart diseases; I36.1 Nonrheumatic tricuspid (valve) insufficiency | CPT/HCPCS: 93306 ==

== ENCOUNTER 2025-05-03 12:07 | Outpatient (AMB) | payer MEDICARE, SELFPAY ==
[2025-05-03 12:50] VITALS: BP 124/78; PULSE 60; TEMP 36.9; O2SAT 94; BMI 38.4
--- NOTE | 2025-05-03 12:50 | MHC.OFFWIV ---
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 Intake Note: pt presents with a red, raised, itchy & painful rash to left side of face, neck and ear Patient Tobacco Use Status: Never used Tobacco Allergies codeine (CODEINE) Adverse Reaction (Intermediate, Verified 05/03/25 12:54) NAUSEA & VOMITING sulfamethoxazole (From BACTRIM) Adverse Reaction (Mild, Verified 05/03/25 12:54) NAUSEA trimethoprim (From BACTRIM) Adverse Reaction (Mild, Verified 05/03/25 12:54) NAUSEA adhesive Allergy (Unknown, Uncoded 06/16/22 10:09) rash codeine Allergy (Unknown, Uncoded 06/16/22 10:09) nausea Do you need a note to return to daycare/school/sports/work: No HPI 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 This has been itching/burning/painful for the last several days. She denies any fevers, chills, or any known recent exposure to any allergens or new products. Up-to-date on shingles vaccine call approximately 2 years ago. She has tried some hydrocortisone cream on the rash without relief. [facility] Medical History Squamous cell carcinoma Skin mass Essential hypertension Surgical History History of excision of mass (~06/02/22) History of bowel resection H/O hernia repair H/O left mastectomy History of appendectomy Family History Daughter Lung cancer Maternal Aunt Breast cancer Social History Alcohol intake: current Patient Tobacco Use Status: Never used Tobacco Review of Systems Const All systems reviewed & are unremarkable except as noted in HPI and below Physical Exam Vital Signs: Last Vital Signs Temp 98.4 F 05/03/25 12:50 Pulse 60 05/03/25 12:50 BP 124/78 05/03/25 12:50 Pulse Ox 94 05/03/25 12:50 Oxygen Delivery Method Room Air 05/03/25 12:50 BMI result Body Mass Index 38.4 Const General: cooperative, healthy appearing, comfortable and no acute distress HEENT Head: Yes normal to inspection Ears: hearing grossly normal bilaterally General nose exam: Normal external nose present Neck Neck: Yes no lymphadenopathy Resp Effort & Inspection: normal respiratory effort Auscultation: clear to auscultation bilaterally Cardio Rate: regular rate Rhythm: regular rhythm Skin Other: Erythematous rash, with some vesicles/blistering present, beginning on the posterior left side of neck, and wrapping laterally/in a linear fashion around neck to the side of face/left ear. Extrem General: Yes capillary refill normal and Yes no clubbing, cyanosis or edema Psych Appearance: grossly normal Mental Status: mental status grossly normal Speech and movement: Normal speech and movement present Assessment & Plan Assessment & Plan (1) Herpes zoster: Code(s): B02.9 - Zoster without complications Qualifiers: Herpes zoster complications: without complications Qualified Code(s): B02.9 - Zoster without complications Plan: Rash appears consistent with zoster. Will start patient on valacyclovir as well as prednisone. We reviewed indications, use, possible side effects of medications. If she is not improved with treatment, or if rash worsens/starts to spread towards face/eyes, she needs to go to the emergency department for evaluation. Patient verbalizes understanding and agrees to plan. Medications: New valacyclovir 1,000 mg PO TID 30 tabs 0RF 10 days B02.9 - Zoster without complications prednisone 40 mg (2 x 20 mg) PO DAILY 6 tabs 0RF 3 days B02.9 - Zoster without complications Coding Level of Care Code Est Pt Level 4 (70193) Diagnoses Herpes zoster without complication B02.9 Herpes zoster complications: without complications
--- OUTSIDE RECORDS SUMMARY | 2025-05-03 14:36 | XMS_ITS | Patient Health Record ---
Author Organization [facility] Address [address] [facility], [place] [address] Care Team Providers Care Air Traffic Control Specialist Name Role Phone Collin Kingsley MD Primary Care Provider Dixon Reyes Unavailable [phone] Allergies Allergen (clinical drug ingredient) Drug/Non Drug [...] Status W/U Status Risk Notes Problem Metatarsalgia (92651612) Metatarsalgia (726.70) Active confirmed Problem Pain in limb (21441710) Pain in Limb (729.5) Active confirmed Problem Gout (35922605) GOUT (274.00) Active confirmed Plan Of Treatment No Information Insurance Providers Payer Name Payer Address Payer Phone Subscriber Number Group Number Insured Name Patient Relationship to Insured Coverage Start Date Coverage End Date [employer] 65 Medicare Preferred [address] [place] [address] [phone] [id number] Sultana Hartmann Self - patient is the insured Medical (General) History Medical History History ICD Code Arthritis Back,Hip,and Knee pain Hypertension
== END 2025-05-03 13:21 | disposition home or self-care (01) ==
PROVIDERS: Visit Provider Nurse Practitioner Family
DX: B02.9 Zoster without complications (principal)

== ENCOUNTER → 2025-05-03 12:07 | Outpatient (BNVA) | payer MEDICARE, SELFPAY | DX: B02.9 Zoster without complications (principal) | CPT/HCPCS: 99212 ==

== ENCOUNTER 2025-05-20 14:45 | Outpatient (AMB) | payer MEDICARE, SELFPAY ==
[2025-05-20 14:50] VITALS: BP 124/70; PULSE 61; BMI 38.4
--- NOTE | 2025-05-20 14:50 | MHC.OFFVIS ---
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 Resort Required: No Accompanied by: Significant Other Allergies codeine (CODEINE) Adverse Reaction (Intermediate, Verified 05/03/25 12:54) NAUSEA & VOMITING sulfamethoxazole (From BACTRIM) Adverse Reaction (Mild, Verified 05/03/25 12:54) NAUSEA trimethoprim (From BACTRIM) Adverse Reaction (Mild, Verified 05/03/25 12:54) NAUSEA adhesive Allergy (Unknown, Uncoded 06/16/22 10:09) rash codeine Allergy (Unknown, Uncoded 06/16/22 10:09) nausea Medication List - Last Reconciled 05/21/25 by Yang Barth MD acetaminophen (Tylenol Extra Strength) 500 mg PO QID PRN cholecalciferol (vitamin D3) 50 mcg PO DAILY hydrochlorothiazide 25 mg PO DAILY meloxicam 15 mg PO DAILY valacyclovir 1,000 mg PO TID 10 days valsartan (Diovan) 320 mg PO DAILY HPI Comments Details: Pleasant 79 year female who is referred to us for mild ascending aortic dilatation at 4.5 cm. She has seen me in 2021 when she was undergoing knee surgery and had a Lexiscan done which was negative when she was clear to undergo surgery which she did successfully. She has dyspnea with activities and some fatigue which is a chronic issue. She is a nonsmoker and is denying any lung disease. Blood pressure is well controlled. No chest discomfort previously. No other complaints currently. [facility] Medical History Squamous cell carcinoma Skin mass Essential hypertension Surgical History History of excision of mass (~06/02/22) History of bowel resection H/O hernia repair H/O left mastectomy History of appendectomy Family History Daughter Lung cancer Maternal Aunt Breast cancer Social History (Reviewed 05/20/25 @ 14:53 by Christa Vargas [facility]) Alcohol intake: current Patient Tobacco Use Status: Never used Tobacco Review of Systems Const Denies chills, Denies fatigue, Denies fever(s), Denies frequent falls, Denies weakness, Denies weight gain and Denies weight loss ENT Denies dizziness Card Denies chest pain, Denies leg edema, Denies lightheadedness, Denies palpitations, Denies dyspnea, Denies dyspnea on exertion and Denies orthopnea Resp Denies cough, Denies dyspnea and Denies dyspnea on exertion GI Denies bloating and Denies change in bowel habits Musc Denies muscle weakness, Denies numbness and Denies tingling Neuro Denies dizziness, Denies frequent falls, Denies numbness, Denies tingling and Denies weakness Endo Denies fatigue and Denies palpitations Physical Exam Vital Signs: Last Vital Signs Pulse 61 05/20/25 14:50 BP 124/70 05/20/25 14:50 BMI result Body Mass Index 38.4 GENERAL APPEARANCE: in no acute distress, obese. NECK: no carotid bruit, no jugular venous distention. SKIN: no suspicious lesions, warm and dry. HEART: no murmurs, regular rate and rhythm. LUNGS: Fine Velcro like crackles both bases. ABDOMEN: soft, nontender. EXTREMITIES: no edema. PERIPHERAL PULSES: equal. NEUROLOGIC: No gross deficits, AAO X 3 Office Procedures EKG Details: Sinus rhythm 61 beats per minute, normal axis, right bundle-branch block, QTC 424 milliseconds. [id number], Complete Assessment & Plan Assessment & Plan (1) Essential hypertension: Comment: Well controlled. Code(s): I10 - Essential (primary) hypertension Category: Medical (2) Mild dilation of ascending aorta: Comment: Stable Code(s): I77.810 - Thoracic aortic ectasia Category: Medical (3) Dyspnea on exertion: Comment: She has dyspnea on exertion. She is not very active. She has gained weight and is quite deconditioned. Code(s): R06.00 - Dyspnea, unspecified Category: Medical Plan Very pleasant 79 year female who is here for mild ascending aortic dilatation noticed on the echocardiogram. Her ascending aorta is 4.5 cm. She has hypertension but blood pressure is well controlled. She is not a smoker. We will repeat echocardiography in 1-2 years to reassess the size of aorta. I think that she will stay stable and we will not requiring intervention for this. She has dyspnea and fatigue. This is a chronic symptom. She has bilateral fine crackles in bases and my concern is that she may have underlying interstitial lung disease. I discussed with her about doing a high-resolution CT scan but she wishes to hold off currently and she will discuss this with her primary care physician. She will see us in 1 year. Thank you for allowing me to participate in the care of your patient. Please feel free to contact me if you have any questions. Coding Level of Care Code New Pt Level 3 (90818) Diagnoses Essential hypertension I10 Mild dilation of ascending aorta I77.810 Dyspnea on exertion R06.00 CPT Codes EKG - CPT: 65765-Rvnjelmisifhcmtow, Complete ([id number])
--- OUTSIDE RECORDS SUMMARY | 2025-05-20 16:38 | XMS_ITS | Clinical Summary ---
Author Organization [facility] Address [address] [place] [address] Phone Care Team Providers Care Three Knife Trimmer Name Role Phone Collin Kingsley MD Primary Care Provider [phone] Yang Barth MD Unavailable [phone] Patricia Marques MD Unavailable Allergies Active Allergy Reactions Criticality Noted Date Comments Amlodipine Other (See Comments) 03/19/2019 Edema both legs Amoxicillin 12/04/2021 Pr reports constipation after taking Amoxicillin Sulfamethoxazole-Trimethopr im GI Upset 09/09/2017 Codeine Nausea and/or Vomiting Low 12/04/2021 Hydrochlorothiazide 03/20/2019 Caused gout Nsaids (Non-Steroidal Anti-Inflammatory Drug) Diarrhea 09/09/2017 Not meloxicam Omeprazole Other (See Comments) 09/09/2017 Joint pain,diarrhea Sulfa (Sulfonamide Antibiotics) High 05/13/2023 Medications cholecalciferol (VITAMIN D3) 2,000 unit capsule 1 tablet daily Active acetaminophen (TYLENOL) 650 MG CR tablet Take 650-1,300 mg by mouth as needed. Six times a week during the day. Active buPROPion (WELLBUTRIN XL) 150 MG ER 24 hr tabletIndication s:Depression, unspecified depression type TAKE 1 TABLET BY MOUTH ONCE DAILY 30 tablet 11 4 Active MULTIVITAMIN ORAL Take by mouth. Active FLUoxetine (PROZAC) 20 MG capsule TAKE ONE CAPSULE BY MOUTH EVERY DAY 90 capsule 3 5 Active hydrALAZINE (APRESOLINE) 10 MG tabletIndication s:Essential hypertension Take 1 tablet (10 mg total) by mouth daily. 90 tablet 3 5 Active meloxicam (MOBIC) 7.5 MG tablet TAKE ONE TABLET BY MOUTH EVERY DAY WITH BREAKFAST 90 tablet 3 5 Active valsartan (DIOVAN) 320 MG tabletIndication s:Essential hypertension TAKE ONE TABLET BY MOUTH EVERY DAY 90 tablet 3 5 Active colchicine (COLCRYS) 0.6 mg tablet Take 0.6 mg by mouth daily. For 10 days for gout attack Active gabapentin (NEURONTIN) 100 MG capsule Take 100 mg by mouth 2 (two) times a day. 3 08/11/20 23 Discontin ued(No longer taking) sennosides-docus ate sodium (SENNA PLUS) 8.6-50 mg Cap Take 1 tablet by mouth daily as needed. 3 04/24/20 25 Discontin ued(No longer taking) pantoprazole (PROTONIX) 40 MG tabletIndication s:Gastroesophage al reflux disease, unspecified whether esophagitis present Take 1 tablet (40 mg total) by mouth daily. 30 tablet 1 4 04/24/20 25 Discontin ued(No longer taking) Active Problems Problem Noted Date Diagnosed Date S/P total knee replacement using cement, left Encounter for preoperative s creening laboratory testing for COVID-19 virus 12/08/2021 Gait instability 05/25/2021 Proximal muscle weakness 05/25/2021 Primary osteoarthritis of left knee 02/25/2021 Primary osteoarthritis of right knee 02/25/2021 Osteoarthritis 11/17/2018 Hypertension 08/11/2018 History of gout 12/30/2017 Hypercholesterolemia 09/30/2017 Irritable bowel 09/30/2017 Menstrual disorder 09/30/2017 Nocturia 09/30/2017 Vitamin D deficiency 09/30/2017 Essential hypertension 09/12/2017 Postmenopausal bleeding 08/08/2017 History of breast cancer 08/22/1983 Overview (08/11/2018): /left mastectomy 1983 Resolved Problems Problem Noted Date Diagnosed Date Resolved Date Generalized osteoarthritis 09/30/2017 0 12/30/2017 Primary osteoarthritis invol ving multiple joints 09/30/2017 12/30/2017 Encounters Date Type Department Care Team Description 05/07/2025 Telephone [facility] Internal Medicine [address] [facility] [place] [address] Collin Kingsley MD Follow-up 04/24/2025 4:00 PM EDT Office Visit [facility] Internal [facility] [address] [place] [address] Collin Kingsley MD Urinary incontinence, unspecified type (Primary Dx); Essential hypertension; Ascending aorta dilatation 04/04/2025 Refill [facility] Internal Medicine [address] [facility] [place] [address] Collin Kingsley MD Medication Refill 03/08/2025 Orders Only [facility] Internal Medicine [address] [facility] [place] [address] ProviderYessi MD 02/27/2025 Refill [facility] Internal [facility] [address] [facility] [place] [address] Collin Kingsley MD Medication Refill 02/18/2025 Refill [facility] Internal [facility] [address] [facility] [place] [address] Collin Kingsley MD Medication Refill from Last 3 Months Immunizations Immunization Administration Dates Next Due COVID-19 (Pre-06/13) Pfizer Vaccine, mRNA, PF 10/21/2020,09/30/2020 [id number] FORMULATION 09/16/2009 INFLUENZA, SPLIT VIRUS, TRIV ALENT W/ PRESERVATIVE IM 08/28/2012 Influenza High-Dose Quadriva lent Preservative Free IM 07/15/2023,06/06/2020 Influenza High-Dose Trivalen t Preservative Free IM 06/11/2019,06/30/2018,05/31/2016,09/16,06/13/2013 Influenza Trivalent Adjuvant ed Preservative free IM 05/28/2024 Influenza, Unspecified Formulation 06/09/2009 Pneumococcal conjugate PCV13 06/03/2015 Pneumococcal polysaccharide PPSV23 09/23/2016, Td, unspecified formulation 09/22/1997 Tdap 02/11/2012 Zoster live 01/14/2015 Family History Medical History Relation Comments Parkinson's disease Brother Lung cancer Daughter Breast cancer Sister 1 COPD Sister 2 Relation Status Comments Brother Daughter Father (Age 72) Mother (Age 80) at 80 Sister 1 Sister 2 Social History Tobacco Use Types Packs/Day Years Used Date Smoking Tobacco: Never Passive Smoke Exposure: Never Smokeless Tobacco: Never Tobacco Cessation:Counseling Given: Not Answered Alcohol Use Standard Drinks/Week Comments Yes 0 (1 standard drink = 0.6 oz pure alcohol) 2-3 drinks (cocktails) a month at most Home Health Assessment: Transportation Answer Date Recorded Lack of Transportation (Medical) No 09/29/2023 Lack of Transportation (Non-Medical) No 09/29/2023 Patient Unable or Declines to Respond No 09/29/2023 Child or Family Care Answer Date Record ed Do you have problems with on e of the following making it difficult for you to work, study, or receive health care? No 04/17/2021 Education Answer Date Recorded Are you interested in more education? Not on daren e 04/19/2023 Are you concerned about learning? Not on file 04/19/2023 No 04/19/2023 No 04/19/2023 Food Answer Date Recorded Within the past 6 months we worried whether our food would run out before we got money to buy more. Never True 04/17/2021 Within the past 6 months the food we bought just didn't last and we didn't have enough money to get more. Never True Residential Stability Answer Date Recor ded What is your housing situation today? I have joelle sing 04/17/2021 How many times have you move d in the past 12 months? Zero (I did not move) 04/17/2021 06 Are you worried that in t he next 2 months, you may not have your own housing to live in? No 04/17/2021 Paying for Meds Answer Date Recorded Do you have trouble paying for medicines? No 04/17/2021 Paying Utility Bills Answer Date Record ed Do you have trouble paying your heating or elect ricity bill? No 04/17/2021 Transportation Answer Date Recorded Has the lack of transportati on kept you from medical appointments or from getting medications? No 04/17/2021 Unemployment Answer Date Recorded Are you currently unemployed or working on a part-time or temporary basis, and looking for work? No 04/17/2021 Digital Access Answer Date Recorded No 01/13/2023 No 01/13/2023 Reliable internet access at home? Not on file 01/13/2023 Device with a working camera? Not on file Intimate Partner Violence Answer Date R ecorded Denied Basic Needs Not on file 06/26/2024 In the past 12 months have y ou been in a relationship with a person who hurts, threatens, or tries to control you? No 06/26/2024 Worried food would run out Not on file 06/26 In the past 12 months have y ou been in a relationship with a person who hurts, threatens, or tries to control you? No 06/26/2024 Comments No Sex and Gender Information Value Date Recorded Sex Assigned at Female 12/17/2022 2:04 PM EDT Legal Sex Female 10:10 PM EDT Gender Identity Female 12/17/2022 2:04 PM EDT Sexual Orientation Straight 12/17/2022 2: 04 PM EDT Last Filed Vital Signs Vital Sign Reading Time Taken Comments Blood Pressure 130/74 04/24/2025 4:39 PM EDT Pulse 63 04/24/2025 3:54 PM EDT Temperature 35.8 C (96.5 F) 04/24/2025 3:54 PM EDT Respiratory Rate 20 04/24/2025 3:54 PM EDT Oxygen Saturation 97% 04/24/2025 3:54 PM EDT Inhaled Oxygen Concentration - - Weight 101.6 kg (224 lb) 04/24/2025 4:39 PM EDT Height 159.3 cm (5' 2.72 ) 04/24/2025 3:54 PM ED T Body Mass Index 40.04 04/24/2025 3:54 PM EDT Plan of Treatment Upcoming Encounters Date Type Department Care Team (Late st Contact Info) Description 08/28/2025 2:00 PM EST Office Visit [facility] Internal Medicine [address] [facility] [place] [address] Collin Kingsley MD [address] [place] [address] [email or web address] Maintenance Due Date Last Done Comments ZOSTER VACCINES (2 of 3) 03/11/2015 01/14/2015 RSV VACCINE (1 - 1-dose 75+ series) 2018 Adult Td,Tdap Booster 02/10/2022 02/11/2012, 998 INFLUENZA VACCINE (#1) 2025 , 07/15/2023, 06/06/2020, Additional history exists COVID-19 VACCINE ( season) 2025 05/28/2024, 08/04/2021, 10/21/2020, Additional history exists DEPRESSION SCREENING 06/26/2025 06/26/2024 BLOOD PRESSURE 10/22/2025 04/24/2025 CREATININE LEVEL 01/29/2026 01/29/2025, 01/2024, 08/09/2023, Additional history exists POTASSIUM LEVEL 01/29/2026 01/29/2025, 02/0 01/2024, 08/09/2023, Additional history exists PNEUMOCOCCAL VACCINES (50+ years) Completed 09/23/2016, 06/03/2015, 01/21/2008 OSTEOPOROSIS SCREENING INITIAL (ONE-TIME) Completed 12/08/2023, 08/25/2023, 03/21/2009 HEPATITIS A VACCINES Aged Out No long er eligible based on patient's age to complete this topic HIB VACCINES Aged Out No longer eligi ble based on patient's age to complete this topic MENINGOCOCCAL VACCINES (ACWY) Aged Out No longer eligible based on patient's age to complete this topic MENINGOCOCCAL VACCINES (B) Aged Out N o longer eligible based on patient's age to complete this topic Medical Devices Implanted Type Area Cemetery Worker Device Identifier Shelf Expiration Date Model / Serial / Lot Bone Cement Antibiotic Refobacin - [id number] Implanted:Qty: 2 on 12/08/2021 by Gerson Green MD at [facility] Left: Knee CHRISTA / DIV OF [employer] 01/20/2024 [id number] / / [id number] Knee Implant Sz 8 Component Femoral Persona Ps [place] Cemented Narrow Lt - [id number] Implanted:Qty: 1 on 12/08/2021 by Gerson Green MD at [facility] Left: Knee [employer] / [facility] 03/01/2031 [id number] / / [id number] Knee Implant 5deg Component Tibial Persona Titanium Stemmed Cemented Lt Size E - [id number] Implanted:Qty: 1 on 12/08/2021 by Gerson Green MD at [facility] Left: Knee [employer] / [facility] 12/26/2030 [id number] / / [id number] Cartography Supervisor Component L 30mm Od 14 Knee Persona Extension Tivanium Cemented Tapered - [id number] Implanted:Qty: 1 on 12/08/2021 by Gerson Green MD at [facility] Left: Knee [employer] / [facility] 08/30/2031 [id number] / / [id number] Knee Cemented 35x9.0mm Patella All Poly Persona Vivacit E Highly Crossed Linked 06 Nc - [id number] Implanted:Qty: 1 on 12/08/2021 by Gerson Green MD at [facility] Left: Knee [employer] / [facility] 07/13/2026 [id number] / / [id number] Psn Asf Mlc 14mm Ve L 6-9ef - [id number] Implanted:Qty: 1 on 12/08/2021 by Gerson Green MD at [facility] Left: Knee [employer] / [facility] 02/19/2024 [id number] / / [id number] Procedures Procedure Name Priority Date/Time Associated Diagnosis Comments URINE SEDIMENT Routine 04/24/2025 5:24 PM EDT URINALYSIS W/REFLEX URINE CULTURE Routine 04/24/2025 5:24 PM EDT Urinary incontinence, unspecified type URINE CULTURE Routine 04/24/2025 5:24 PM EDT OUTSIDE ECHO Routine 03/07/2025 3:18 PM EDT COMPREHENSIVE METABOLIC PANEL Routine 01/29/2025 3:48 PM EDT Hypercholesterolemia Essential hypertension BD DXA MONITORING Routine 12/08/2023 10: 28 AM EDT Osteoporosis with current pathological fracture, sequela from Last 3 Months or Most Recently Relevant to Health Maintenance Results * (ABNORMAL) Urinalysis w/reflex Urine Culture (04/24/2025 5:24 PM EDT) COLOR Yellow Yellow [facility] CLARITY Clear [facility] GLUCOSE Negative Negative [facility] BILI Negative Negative [facility] KETONES Negative Negative [facility] SPECIFIC GRAVITY 1.025 1.005 - 1.030 [facility] BLOOD Trace(A) Negative [facility] PH 6.0 5.0 - 8.0 [facility] Protein-UA Negative Negative [facility] NITRITE Negative Negative [facility] Leukocyte esterase, ur 3+(A) Negative [facility] Urine (Urine) 04/24/2025 5:2 4 PM EDT 04/24/2025 9:40 PM EDT Collin Kingsley MD URINE ORDERABLES Final Result [address] [address] * (ABNORMAL) Urine Culture (04/24/2025 5:24 PM EDT) Special Requests None Reflexed from [id number] 04/24/2025 9:55 PM EDT [facility] Urine Culture >100,000 colony forming units per mL MIXED LUCIE (3 OR MORE COLONY TYPES) Culture indicates contamination . Please resubmit if necessary.(A) 04/26/2025 8:38 AM EDT [facility] Urine 04/24/2025 5:24 PM EDT 04/24/2025 9:40 PM EDT Collin Kingsley MD MICROBIOLOGY - GENERAL ORDERA BLES Final Result Performing Organization Address [facility] [address]/ZIP Co de Phone Number [address] [address] * (ABNORMAL) Urine sediment (04/24/2025 5:24 PM EDT) WBC 21-49(A) NONE SEEN /hpf [facility] RBC 0-2(A) NONE SEEN /hpf [facility] URINE EPITHELIAL 21-49(A) NONE SEEN [facility] MUCUS Trace(A) NONE SEEN /hpf [facility] BACTERIA 2+(A) NONE SEEN /hpf [facility] 04/24/2025 5:24 PM EDT 04/24/2025 9:40 PM EDT Collin Kingsley MD URINE ORDERABLES Final Result Performing Organization Address [facility] [address]/[facility] Co de Phone Number [address] [address] * Outside Echo Report Only (03/07/2025 3:18 PM EDT) Historical Provider CV ECHO ORDERABLES Final Result * Comprehensive metabolic panel (01/29/2025 3:48 PM EDT) SODIUM 138 133 - 146 mmol/L [facility] POTASSIUM 4.2 3.3 - 5.1 mmol/L [facility] CHLORIDE 104 96 - 108 mmol/L [facility] CO2 25 21 - 35 mmol/L [facility] BUN 17 6 - 19 mg/dL [facility] CREATININE 0.80 0.5 - 1.5 mg/dL [facility] GLUCOSE 98 70 - 99 mg/dL [facility] ALBUMIN 3.9 3.9 - 4.8 g/dL [facility] TOTAL PROTEIN 7.9 6.5 - 8.0 g/dL [facility] CALCIUM 9.9 8.4 - 10.3 mg/dL [facility] ALKALINE PHOSPHATASE 111 39 - 117 U/L [facility] TOTAL BILIRUBIN 0.5 0.0 - 1.2 mg/dL [facility] AST 28 0 - 37 U/L [facility] ALT 17 0 - 40 U/L [facility] GLOBULIN 4.0 1 - 4.8 g/dL [facility] EGFR 74 >59 mL/min/1.7 3m2 [facility] Comment:Estimated glomerular filtration rate calculated using the CKD-EPI refit equation. ANION GAP 13 10 - 20 mmol/L [facility] Blood 01/29/2025 3:48 PM EDT 01/29/2025 3:56 PM EDT Collin Kingsley MD LAB BLOOD ORDERABLES Final Re sult [address] [address] * DXA Monitoring (12/08/2023 10:28 AM EDT) Anatomical Region Laterality Modality Bone Density Bone Density Collin Kingsley MD IMG BD BONE DENSITY DEXA Karly l Result from Last 3 Months or Most Recently Relevant to Health Maintenance Insurance [place] P[place] [address] [place] [address] MEDICARE PPO BLUE REPLACEMENT [place]AC[place] Advance Directives For more information, please contact: [phone] (9AM - 5PM [facility], Tuesday-Tuesday) * Full Code (Latest Code Status on File) Date Activated Date Inactivated Comments 12/08/2021 1:53 PM Question Answer Comments Code Status Confirmed With: Patient * Full Code Date Activated Date Inactivated Comments 12/08/2021 9:35 AM 12/08/2021 1:53 PM Question Answer Comments Code Status Confirmed With: Patient Care Teams Three Knife Trimmer Relationship Specialty Start Date End Date Collin Kingsley MD [address] [place] [address] [email or web address] PCP - General Internal Medicine 04/07/20 [place] [address] [place] [address] [place] [address] Cardiology 04/11/20 Patricia Marques MD [address] [id number] Obstetrics and Gynecology 04/17/21 Additional Source Comments The information contained in this document represents components of the legal health record. It is not the complete legal health record.[facility]
--- OUTSIDE RECORDS SUMMARY | 2025-05-20 16:38 | XMS_ITS | Patient Health Record ---
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
--- OUTSIDE RECORDS SUMMARY | 2025-05-20 16:38 | XMS_ITS | Encounter Summary ---
Author Organization [facility] Address [address] [address] [place] [address] Phone Care Team Providers Care Dampproofer Name Role Phone Collin Kingsley MD Primary Care Provider [phone] Yang Barth MD Unavailable [phone] Patricia Marques MD Unavailable [phone] Encounter Details Date Type Department Care Team (Late st Contact Info) Description 06/16/2022 Ancillary Orders [address] [address] Gerson Green MD [address] [place] [address] [email or web address] Right knee pain, unspecified chronicity Social History Tobacco Use Types Packs/Day Years Used Date Smoking Tobacco: Never Smokeless Tobacco: Never Alcohol Use Standard Drinks/Week Comments Not Currently 0 (1 standard drink = 0.6 oz pur e alcohol) 3 a month at most Child or Family Care Answer Date Record ed Do you have problems with on e of the following making it difficult for you to work, study, or receive health care? No 04/17/2021 Education Answer Date Recorded Are you interested in help w ith more adult education (for example, completing high school, GED, job training, learning the French language, technical skills, or developing parenting skills)? No 04/17/2021 Food Answer Date Recorded Within the past [...] your housing situation today? I have joelle espinosa 04/17/2021 How many times have you move [...] basis, and looking for work? No 04/17/2021 Comments No Sex and Gender Information Value Date Recorded Sex Assigned at Female 12/17/2022 2:04 PM EDT Legal Sex Female 10:10 PM EDT Gender Identity Female 12/17/2022 2:04 PM EDT Sexual Orientation Straight 12/17/2022 2: 04 PM EDT documented as of this encounter Plan of Treatment Upcoming Encounters Date Type Department Care Team (Late st Contact Info) Description 08/28/2025 2:00 PM EST Office Visit [facility] Internal Medicine [address] [place] [address] Collin Kingsley MD [address] [place] [address] [email or web address] documented as of this encounter Results * XR KNEE 1-2 VIEWS (RIGHT) (06/17/2022 2:36 PM EDT) Narrative SYSTEMGENERATED, DOCUMENTATION - 06/17/2022 2:37 PM EDT This image report has been auto-finalized and has not been read by a Radiologist. Interpretation has been included in the provider encounter note for this date of service. us Gerson Green MD IMG XR LOWER EXTREMIT Y Final Result documented in this encounter Visit Diagnoses Diagnosis Right knee pain, unspecified chronicity Right knee pain, unspecified chronicity documented in this encounter Additional Health Concerns Assessment Noted Time PHQ-2 Depression Total Score: 0 04/17/20 21 1:28 PM EDT documented as of this encounter Care Teams Dampproofer Relationship Specialty Start Date End Date Collin Kingsley MD [address] [place] [address] [email or web address] PCP - General Internal Medicine 04/07/20 [place] [address] [place] [address] Cardiology 04/11/20 Patricia Marques MD [address] [phone] Obstetrics and Gynecology 04/17/21 documented as of this encounter Additional Source Comments The information contained in this document represents components of the legal health record. It is not the complete legal health record.[facility]
--- OUTSIDE RECORDS SUMMARY | 2025-05-20 16:38 | XMS_ITS | Encounter Summary ---
Author Organization [facility] Address [address] [place] [address] Phone Care Team Providers Care Legal Billing Clerk Name Role Phone Collin Kingsley MD Primary Care Provider [phone] Yang Barth MD Unavailable [phone] Patricia Marques MD Unavailable [phone] Encounter Details Date Type Department Care Team (Late st Contact Info) Description 12/08/2021 Procedure Pass OR Admitting Dept - Virtual Department [address] [place] [address] Social History Tobacco Use Types Packs/Day Years [...] high school, GED, job training, learning the Bahraini language, technical skills, or developing parenting skills)? [...] PM EDT documented as of this encounter Functional Status * Calculated C-SSRS Risk Score (Lifetime/Recent) Answer Date of Assessment Author No Risk Indicated 12/08/2021 3:18 PM EDT Kaci Waldron RN * [place] Suicide Severity Rating Scale (Screener/Recent Self-Report) Question Answer Date of Assessment Author 1. Wish to be (Past 1 Month) No 12/08/2021 3:18 PM EDT Kaci Waldron RN 2. Non-Specific Active Suicidal Thoughts (Past 1 Month) No 12/08/2021 3:18 PM EDT Kaci Waldron, ROSSY 6. Suicidal Behavior (Lifetime) No 12/08/2021 3:18 PM EDT Kaci Waldron, ROSSY documented as of this encounter Plan of Treatment Upcoming Encounters Date Type Department Care Team (Late st Contact Info) Description 08/28/2025 2:00 PM EST Office Visit [facility] Internal Medicine [address] [place] [phone] Collin Kingsley MD [address] [place] [address] [email or web address] documented as of this encounter Visit Diagnoses Not on filedocumented in this encounter Additional Health Concerns Infection Onset Date Last Indicated Resolved Time CoV-Exposed 12/08/2021 12/15/2021 12/18/2021 1:22 AM EDT Assessment Noted Time PHQ-2 Depression Total Score: 0 04/17/20 21 1:28 PM EDT documented as of this encounter Care Teams Legal Billing Clerk Relationship Specialty Start Date End Date Collin Kingsley MD [address] [place] [address] [email or web address] PCP - General Internal Medicine 04/07/20 [place] [address] [place] [address] Cardiology 04/11/20 Patricia Marques MD [address] [phone] Obstetrics and Gynecology 04/17/21 documented as of this encounter Additional Source Comments The information contained in this document represents components of the legal health record. It is not the complete legal health record.[facility]
--- OUTSIDE RECORDS SUMMARY | 2025-05-20 16:38 | XMS_ITS | Encounter Summary ---
Author Organization [facility] Address [address] [place] [address] Phone Care Team Providers Care Police Pilot Name Role Phone Collin Kingsley MD Primary Care Provider [phone] Yang Barth MD Unavailable [phone] Patricia Marques MD Unavailable [phone] Encounter Details Date Type Department Care Team (Late st Contact Info) Description 05/04/2022 Procedure Pass OR Admitting Dept - Virtual Department [address] [place] [address] Social History Tobacco Use Types Packs/Day Years [...] high school, GED, job training, learning the Algerian language, technical skills, or developing parenting skills)? [...] Description 08/28/2025 2:00 PM EST Office Visit [facility] Internal Medicine [address] [place] [address] Collin Kingsley MD [address] [place] [address] [email or web address] documented as of this encounter Visit Diagnoses Not on filedocumented in this encounter Additional Health Concerns Assessment Noted Time PHQ-2 Depression Total Score: 0 04/17/20 21 1:28 PM EDT documented as of this encounter Care Teams Police Pilot Relationship Specialty Start Date End Date Collin Kingsley MD [address] [place] [address] PCP - General Internal Medicine 04/07/20 Yang Barth MD [address] [facility] [place] [address] Cardiology 04/11/20 Patricia Marques MD [address] [place] [phone] Obstetrics and Gynecology 04/17/21 documented as of this encounter Additional Source Comments The information contained in this document represents components of the legal health record. It is not the complete legal health record.[facility]
--- OUTSIDE RECORDS SUMMARY | 2025-05-20 16:38 | XMS_ITS | Encounter Summary ---
Author Organization [facility] Address [address] [place] [address] Phone Care Team Providers Care Hanger Off Name Role Phone Collin Kingsley MD Primary Care Provider [phone] Yang Barth MD Unavailable [phone] Patricia Marques MD Unavailable [phone] Encounter Details Date Type Department Care Team (Late st Contact Info) Description 07/05/2022 Procedure Pass OR Admitting Dept - Virtual Department [address] [place] [address] Social History Tobacco Use Types Packs/Day Years [...] high school, GED, job training, learning the Marshallese language, technical skills, or developing parenting skills)? [...] Description 08/28/2025 2:00 PM EST Office Visit [facility] Internal Medicine [address] [place] [address] Collin Kingsley MD [address] [place] [address] [email or web address] documented as of this encounter Visit Diagnoses Not on filedocumented in this encounter Additional Health Concerns Assessment Noted Time PHQ-2 Depression Total Score: 0 04/17/20 21 1:28 PM EDT documented as of this encounter Care Teams Hanger Off Relationship Specialty Start Date End Date Collin Kingsley MD [address] [place] [address] PCP - General Internal Medicine 04/07/20 Yang Barth MD [address] [facility] [place] [address] Cardiology 04/11/20 Patricia Marques MD [address] [place] [phone] Obstetrics and Gynecology 04/17/21 documented as of this encounter Additional Source Comments The information contained in this document represents components of the legal health record. It is not the complete legal health record.[facility]
--- OUTSIDE RECORDS SUMMARY | 2025-05-20 16:38 | XMS_ITS | Encounter Summary ---
Author Organization [facility] Address [address] [place] [address] Phone Care Team Providers Care Marketing Designer Name Role Phone Collin Kingsley MD Primary Care Provider [phone] Yang Barth MD Unavailable [phone] Patricia Marques MD Unavailable [phone] Encounter Details Date Type Department Care Team (Late st Contact Info) Description 11/30/2021 Prep for Surgery [facility] Orthopedics & Sports Medicine [address] [place] [address] [place] [address] Gerson Green MD [address] [place] [address] [email or web address] Social History Tobacco Use Types Packs/Day Years Used Date Smoking Tobacco: Never Smokeless Tobacco: Never Alcohol Use Standard Drinks/Week Comments Yes 1 (1 standard drink = 0.6 oz pur e alcohol) mixed drink Child or Family Care Answer Date Record ed Do you have problems with on e of the following making it difficult for you to work, study, or receive health care? No 04/17/2021 Education Answer Date Recorded Are you interested in help w ith more adult education (for example, completing high school, GED, job training, learning the Afghan language, technical skills, or developing parenting skills)? [...] Description 08/28/2025 2:00 PM EST Office Visit [facility] Internal Medicine [address] [place] [address] Collin Kingsley MD [address] [place] [address] [email or web address] documented as of this encounter Visit Diagnoses Not on filedocumented in this encounter Additional Health Concerns Infection Onset Date Last Indicated Resolved Time CoV-Exposed 12/08/2021 12/15/2021 12/18/2021 1:22 AM EDT Assessment Noted Time PHQ-2 Depression Total Score: 0 04/17/20 21 1:28 PM EDT documented as of this encounter Care Teams Marketing Designer Relationship Specialty Start Date End Date Collin Kingsley MD [address] [place] [address] [email or web address] PCP - General Internal Medicine 04/07/20 Yang Barth MD [address] [place] [address] Cardiology 04/11/20 Patricia Marques MD [address] [phone] Obstetrics and Gynecology 04/17/21 documented as of this encounter Additional Source Comments The information contained in this document represents components of the legal health record. It is not the complete legal health record.[facility]
--- OUTSIDE RECORDS SUMMARY | 2025-05-20 16:38 | XMS_ITS | Encounter Summary ---
Author Organization [facility] Address [address] [place] [address] Phone Care Team Providers Care Co Chairman Name Role Phone Collin Kingsley MD Primary Care Provider [phone] Yang Barth MD Unavailable [phone] Patricia Marques MD Unavailable [phone] Encounter Details Date Type Department Care Team (Late st Contact Info) Description 06/16/2022 Ancillary Orders [facility] Orthopedics & Sports Medicine [address] [place] [address] Gerson Green MD [address] [place] [address] [email or web address] Social History Tobacco Use Types Packs/Day [...] high school, GED, job training, learning the Micronesian language, technical skills, or developing parenting skills)? [...] Description 08/28/2025 2:00 PM EST Office Visit [facility] Internal Medicine [address] [place] [address] Collin Kingsley MD [address] [place] [address] [email or web address] documented as of this encounter Visit Diagnoses Not on filedocumented in this encounter Additional Health Concerns Assessment Noted Time PHQ-2 Depression Total Score: 0 04/17/20 21 1:28 PM EDT documented as of this encounter Care Teams Co Chairman Relationship Specialty Start Date End Date Collin Kingsley MD [address] [place] [address] [email or web address] PCP - General Internal Medicine 04/07/20 Yang Barth MD [address] [place] [address] Cardiology 04/11/20 Patricia Marques MD [address] [place] [phone] Obstetrics and Gynecology 04/17/21 documented as of this encounter Additional Source Comments The information contained in this document represents components of the legal health record. It is not the complete legal health record.[facility]
== END 2025-05-20 15:15 | disposition home or self-care (01) ==
PROVIDERS: PCP Internal Medicine; Visit Provider Internal Medicine Cardiovascular Disease
DX: I10 Essential (primary) hypertension (principal); I77.810 Thoracic aortic ectasia; R06.00 Dyspnea, unspecified
CPT/HCPCS: 99203

== ENCOUNTER → 2025-05-20 14:45 | Outpatient (BNVA) | payer MEDICARE, SELFPAY | PROVIDERS: PCP Internal Medicine; Visit Provider Internal Medicine Cardiovascular Disease | DX: I10 Essential (primary) hypertension (principal); I77.810 Thoracic aortic ectasia; R06.00 Dyspnea, unspecified | CPT/HCPCS: 93005; 99202 ==